=== PATIENT | male | born 1990 | race Two or more races ===

== ENCOUNTER 2021-09-29 16:30 | Emergency (ER) | payer BC, MEDICAID ==
[~2021-09-29] VITALS: Ht 170.2 cm; Wt 144.2 kg
[2021-09-29] MEDS ORDERED: KETOROLAC TROMETH 30 MG/ML 1ML VIAL IM ONE (17:00)
[2021-09-29 20:39] VITALS: BP 146/94
== END 2021-09-29 23:27 | disposition home or self-care (01) ==
LOC: ER 16:30
DX: S89.92XA Unspecified injury of left lower leg, initial encounter (principal); X50.1XXA Overexertion from prolonged static or awkward postures, initial encounter; Y93.89 Activity, other specified; Y92.89 Other specified places as the place of occurrence of the external cause; Y99.8 Other external cause status
CPT/HCPCS: 73562; 96372; 99283; J1885